=== PATIENT | female | born 1995 | race Caucasian/White ===

== ENCOUNTER 2020-01-29 13:39 | Emergency (ER) | payer OTHER, SELFPAY ==
--- NOTE | 2020-01-29 13:49 | ED.FEMALEGU ---
HPI - Female Genitourinary General Chief complaint: Urogenital-Female Stated complaint: Urogenital-female Time Seen by Provider: 01/29/20 13:49 Source: patient and RN notes reviewed History of Present Illness HPI Narrative: Patient is a 24-year-old female who presents the urgent care with complaints of suprapubic pressure/pains, decreased urinary output and slight low back pain. Patient states that she does have a frequency, urgency and dysuria as well. Patient reports of nausea but denies of any vomiting. Denies of any known fever. Denies of any history of urinary tract infections. Patient states that she did have a recent short. And did have a miscarriage in October as well. Patient continues to have unprotected sex. No other acute complaints. No acute distress noted. Patient read the plan of care. Related Data Allergies Allergy/AdvReac Type Severity Reaction Status Date / Time Penicillins Allergy Intermediate Unknown Verified 01/29/20 13:50 latex Allergy Mild Swelling Verified 01/29/20 13:50 amoxicillin Allergy Unknown Unknown Verified 01/29/20 13:50 Review of Systems Review of Systems: Narrative: CONSTITUTIONAL: Denies fever, chills, or sweats. EYES: Denies visual changes, redness, or discharge. ENT: Denies rhinorrhea, congestion, sore throat, or otalgia. CARDIOVASCULAR: Denies chest pain, palpitations, or edema. RESPIRATORY: Denies cough or dyspnea. GASTROINTESTINAL: Reports of intermittent nausea without vomiting or diarrhea GENITOURINARY: Reports of dysuria, urgency, frequency, suprapubic pressure SKIN: Denies rash or itching. MUSCULOSKELETAL: Reports of low back pain NEUROLOGIC: Denies headache, numbness, or weakness. All other systems reviewed are negative, except as documented in HPI. PMFSH Comments At the time of my signature, I reviewed and agree with the nursing past medical, surgical, social, and family history. There is no relevant family history pertinent to the patient complaint. Exam Narrative: Exam Narrative: GENERAL: This is a well-nourished, well-developed patient, in no apparent distress. HEAD: normocephalic, atraumatic. EYES: PERRL. Sclera clear/white. Vision is grossly intact. EARS: External ears normal NOSE: External nose normal with no obvious nasal discharge, nares without redness, no rhinorrhea. THROAT: Mucous membranes moist NECK: Neck supple GASTROINTESTINAL: Abdomen soft, mild suprapubic tenderness, nondistended. SKIN: warm, intact with no suspicious lesions or rash, good texture and turgor. NEURO: awake, alert, and oriented to person, place and time. There were no obvious focal neurologic abnormalities. EXTREMITIES: No clubbing, cyanosis, or edema. BACK: Negative bilateral CVA tenderness Course Vital Signs Vital signs: Vital Signs Temperature 98.3 F 01/29/20 13:50 Pulse Rate 63 01/29/20 13:50 Respiratory Rate 20 01/29/20 13:50 Blood Pressure 138/71 01/29/20 13:50 Pulse Oximetry 100 01/29/20 13:50 Temperature 98.3 F 01/29/20 13:50 Pulse Rate 63 01/29/20 13:50 Respiratory Rate 20 01/29/20 13:50 Blood Pressure 138/71 01/29/20 13:50 Pulse Oximetry 100 01/29/20 13:50 Reviewed MDM - Female Genitourinary MDM Narrative Medical decision making narrative: Reviewed lab results with the patient. She is aware that urine analysis may be indicative of a urinary tract infection. Considering your symptoms and low bacteria noted in the urine?will start you on antibiotic regimen. Make sure to eat and drink with the antibiotics and finish the medication unless otherwise directed not to. Advised the patient to follow-up on her culture results within 72 hours considering we do not call for negatives. If the culture result is positive and the antibiotic you were prescribed does not treat effectively, you will be called with the change of medication direction. In the meantime increase water intake and avoid sugary and caffeinated drinks. If you experience any increase
[2020-01-29 13:50] VITALS: BP 138/71; PULSE 63; RESP 20; TEMP 36.8; O2SAT 100
== END 2020-01-29 14:20 | disposition home or self-care (01) ==
PROVIDERS: Emergency Provider Nurse Practitioner Family
DX: N39.0 Urinary tract infection, site not specified (principal); J45.909 Unspecified asthma, uncomplicated
CPT/HCPCS: 81003; 87086; 87088; 99213; G0463

== ENCOUNTER 2020-10-03 13:06 | Emergency (ER) | payer OTHER, SELFPAY ==
[2020-10-03 13:17] VITALS: BP 155/66; PULSE 68; RESP 19; TEMP 37; O2SAT 100
--- NOTE | 2020-10-03 13:38 | ED.GENADULT ---
HPI - General Adult General Chief complaint: Upper Respiratory Infection Stated complaint: ear pain and runny nose Time Seen by Provider: 10/03/20 13:38 Source: patient and RN notes reviewed Mode of arrival: ambulatory Limitations: no limitations History of Present Illness HPI narrative: 24-year-old female presents with complains of left otalgia, sneezing, and nasal congestion for the past 2 days. Ruthie reports increasing symptoms with rhinorrhea. NyQuil cold and flu with some relief. Denies cough and chest congestion. Rhinorrhea and nasal congestion. Denies sore throat. No high fevers, drooling, neck or throat swelling. No chest pain, wheezing, or shortness of breath. No exacerbation factors. Denies nausea, vomiting, and abdominal pain. Tolerating liquids well. LMP 10/01/2020. Remains active. The patient reports she have not been diagnosed with COVID-19. The patient reports she is not waiting for the results of a COVID-19 lab test. The patient reports she do not have chills, weakness, or fatigue. The patient reports she do not have any loss of taste or smell, and diarrhea. Denies recent traveling. Denies concerns for COVID-19 or exposures been home with limited outdoor exposure except for essential household needs, work, and return home. At this time, patient is not suspected of having COVID-19. Some parts of this dictation were generated by voice recognition software and may contain typographical and/or grammatical inaccuracies. Related Data Allergies Allergy/AdvReac Type Severity Reaction Status Date / Time Penicillins Allergy Intermediate Unknown Verified 10/03/20 13:09 latex Allergy Mild Swelling Verified 10/03/20 13:09 amoxicillin Allergy Unknown Unknown Verified 10/03/20 13:09 Review of Systems Review of Systems: Narrative: CONSTITUTIONAL: Denies fever, chills, sweats. EYES: Denies visual changes, redness, discharge. ENT: Denies sneezing, rhinorrhea, congestion, LT otalgia. Denies sore throat. CARDIOVASCULAR: Denies chest pain, palpitations, edema. RESPIRATORY: Denies dyspnea, wheezing, cough. GASTROINTESTINAL: Denies abdominal pain, nausea, vomiting, diarrhea. SKIN: Denies rash or itching. MUSCULOSKELETAL: Denies acute back pain, joint pain, or myalgia. NEUROLOGIC: Denies numbness or focal weakness. PSYCHIATRIC: Denies anxiety or depression. All systems reviewed & are unremarkable except as noted in HPI and below. [facility] Past Medical History Medical History (Updated 10/03/20 @ 14:27 by AGUS Malik) Asthma Ear infection Surgical History Surgical History (Updated 10/03/20 @ 14:27 by AGUS Malik) No significant past surgical history Family History Family History (Updated 10/03/20 @ 14:28 by AGUS Malik) Father Asthma Mother Asthma Diabetes mellitus Fibromyalgia Social History Social History (Updated 10/03/20 @ 14:29 by AGUS Malik) Smoking status: Former smoker Tobacco type: cigarettes Second hand tobacco smoke exposure: No Smoking end date: 09/17/19 Alcohol intake: current Substance use: never Living arrangements: with family Occupation/Education: occupation Gender identity (if verbalized by the patient): Female Sexual Orientation (if Verbalized by the Patient): Straight or Heterosexual Comments At time of signature, agree with nurse past medical, surgical, social, and family history. There is relevant patient's history pertinent to the presenting complaint, no relevant family history pertinent to the presenting complaint. Exam Narrative: Exam Narrative: GENERAL: This is a well-nourished, well-developed patient, in no apparent distress. Talks in full sentences and ambulates with steady gait without dyspnea. HEAD: Normocephalic, atraumatic. EYES: PERRL. Sclera clear/white. Vision is grossly intact. EARS: TMs normal without perforation. Hearing grossly intact. EARS: External ears normal, auditory canals c
[2020-10-03 14:16] VITALS: BP 132/80
[2020-10-04 19:04] LABS: SARS-CoV-2 RNA PCR Negative
== END 2020-10-03 14:16 | disposition home or self-care (01) ==
PROVIDERS: Emergency Provider Nurse Practitioner Family
DX: B34.9 Viral infection, unspecified (principal); H92.02 Otalgia, left ear; Z20.822 Contact with and (suspected) exposure to COVID-19; J45.909 Unspecified asthma, uncomplicated; Z87.891 Personal history of nicotine dependence
CPT/HCPCS: 99213; C9803; G0463; U0003; U0005

== ENCOUNTER 2021-01-18 14:37 | Emergency (ER) | payer OTHER, SELFPAY ==
[2021-01-18 14:46] VITALS: BP 157/67; PULSE 100; RESP 20; TEMP 37.2; O2SAT 100
[2021-01-18 14:58] VITALS: BP 157/67; PULSE 100; RESP 20; TEMP 37.2; O2SAT 100
--- NOTE | 2021-01-18 15:07 | ED.EAR ---
HPI - Ear Problem General Chief complaint: Ear Stated complaint: Possible asthma and Ear pain Time Seen by Provider: 01/18/21 15:07 Source: patient, RN notes reviewed and old records reviewed Mode of arrival: ambulatory Limitations: no limitations History of Present Illness HPI Narrative: 25-year-old female who presents to [facility] with a 2-day history of ear pain with sinus congestion. Patient reports no known fevers, cough, sore throat, no difficulty with breathing.Patient has history of asthma but denies any problems with her asthma lately, has not had to use her inhaler for quite awhile. Patient states that she takes daily Claritin. MD Complaint: ear pain Location: left ear Related Data Allergies Allergy/AdvReac Type Severity Reaction Status Date / Time Penicillins Allergy Intermediate Rash Verified 01/18/21 14:57 latex Allergy Mild Swelling Verified 01/18/21 14:57 amoxicillin Allergy Unknown Rash Verified 01/18/21 14:57 Review of Systems Review of Systems: CONSTITUTIONAL: Denies fever, chills, or sweats. EYES: Denies visual changes, redness, or discharge. ENT: Positive rhinorrhea,no congestion, no sore throat, left otalgia. CARDIOVASCULAR: Denies chest pain, palpitations, or edema. RESPIRATORY: Denies cough or dyspnea. GASTROINTESTINAL: Denies abdominal pain, nausea, vomiting, or diarrhea. GENITOURINARY: Denies dysuria or hematuria. SKIN: Denies rash or itching. MUSCULOSKELETAL: Denies back pain, joint pain, or myalgia. NEUROLOGIC: Denies headache, numbness, or weakness. PSYCHIATRIC: Positive for history of anxiety or depression. All systems reviewed & are unremarkable except as noted in HPI and below [facility] Past Medical History Medical History (Updated 01/18/21 @ 15:50 by Quynh Magaña NP) Asthma Bipolar 1 disorder Ear infection Surgical History Surgical History (Updated 10/03/20 @ 14:27 by AGUS Malik) No significant past surgical history Family History Family History (Updated 01/18/21 @ 15:51 by Quynh Magaña NP) Father Asthma Heart disease Mother Asthma Diabetes mellitus Fibromyalgia Hypertension Grandparent Heart disease Pancreatic cancer Social History Social History (Updated 10/03/20 @ 14:29 by AGUS Malik) Smoking status: Former smoker Tobacco type: cigarettes Second hand tobacco smoke exposure: No Smoking end date: 09/17/19 Alcohol intake: current Substance use: never Gender identity (if verbalized by the patient): Female Exam Narrative: GENERAL: Well-appearing, well-nourished, and in no acute distress. HEAD: Normocephalic, atraumatic. EYES: PERRLA and EOMI. ENT: Nares light red with clear rhinorrhea no epistaxis. Mucous membranes moist.TM normal to the right ear with good light reflex, Left TM red with bulging membrane noted, no drainage, throat red with no lesions or exudates, no tonsil swelling noted or redness, post nasal drainage noted. NECK: Supple. no lymphadenopathy CHEST: Clear to auscultation. No respiratory distress. SAO2 100% on room air. HEART: Regular rate and rhythm. No murmur heard. Normal peripheral pulses. ABDOMEN: Soft, nontender, nondistended, normal active bowel sounds. EXTREMITIES: Normal range of motion. No edema. SKIN: Warm, dry, no rash. NEURO: No focal deficits. Alert and oriented x3. Course Vital Signs Vital signs: Vital Signs Temperature 37.2 C 01/18/21 14:46 Pulse Rate 100 01/18/21 14:46 Respiratory Rate 20 01/18/21 14:46 Blood Pressure 157/67 H 01/18/21 14:46 Pulse Oximetry 100 01/18/21 14:46 Temperature 37.2 C 01/18/21 14:58 Pulse Rate 100 01/18/21 14:58 Respiratory Rate 20 01/18/21 14:58 Blood Pressure 157/67 H 01/18/21 14:58 Pulse Oximetry 100 01/18/21 14:58 Medical Decision Making Differential Diagnosis Differential Diagnosis: otitis media, otitis externa, URI, sinusitis, viral syndrome Medical Records Medical records reviewed: Yes I reviewed t
== END 2021-01-18 15:29 | disposition home or self-care (01) ==
PROVIDERS: Emergency Provider Registered Nurse
DX: H65.02 Acute serous otitis media, left ear (principal); Z87.891 Personal history of nicotine dependence; J45.909 Unspecified asthma, uncomplicated
CPT/HCPCS: 99213; G0463

== ENCOUNTER 2021-10-11 10:27 | Emergency (ER) | payer OTHER, SELFPAY ==
--- NOTE | 2021-10-11 10:32 | ED.FEMALEGU ---
HPI - Female Genitourinary General Chief complaint: Urogenital-Female Stated complaint: Poss uti Time Seen by Provider: 10/11/21 10:32 Source: patient and RN notes reviewed History of Present Illness HPI Narrative: Patient is a 25-year-old female who presents the urgent care with complaints of possible UTI. Patient states that 4 days ago she started having urgency, suprapubic pressure and urinary frequency. Patient states that she is 3 days late on her period and did have a positive test at home. Patient denies any fevers, nausea, vomiting. Patient states this is her second and she does have a 5-year-old at home. No other acute complaints. No acute distress noted. Patient aware of the plan of care. Some parts of this dictation were generated by voice recognition software and may contain typographical and/or grammatical inaccuracies. Related Data Allergies Allergy/AdvReac Type Severity Reaction Status Date / Time Penicillins Allergy Intermediate Rash Verified 01/18/21 14:57 latex Allergy Mild Swelling Verified 01/18/21 14:57 amoxicillin Allergy Unknown Rash Verified 01/18/21 14:57 Review of Systems Review of Systems: CONSTITUTIONAL: Denies fever, chills, or sweats. EYES: Denies visual changes, redness, or discharge. ENT: Denies rhinorrhea, congestion, sore throat, or otalgia. CARDIOVASCULAR: Denies chest pain, palpitations, or edema. RESPIRATORY: Denies cough or dyspnea. GASTROINTESTINAL: Denies abdominal pain, nausea, vomiting, or diarrhea. GENITOURINARY: Reports of urinary frequency, urgency and suprapubic pressure SKIN: Denies rash or itching. MUSCULOSKELETAL: Denies back pain, joint pain, or myalgia. NEUROLOGIC: Denies headache, numbness, or weakness. All other systems reviewed are negative, except as documented in HPI. [facility] Past Medical History Medical History (Updated 10/11/21 @ 10:57 by AGUS Gardner) Asthma Bipolar 1 disorder Ear infection Surgical History Surgical History (Updated 10/03/20 @ 14:27 by AGUS Malik) No significant past surgical history Family History Family History (Updated 01/18/21 @ 15:52 by Quynh Magaña NP) Father Asthma Heart disease Mother Asthma Diabetes mellitus Fibromyalgia Hypertension Grandparent Heart disease Pancreatic cancer Social History Social History (Updated 10/03/20 @ 14:29 by AGUS Malik) Smoking status: Former smoker Tobacco type: cigarettes Second hand tobacco smoke exposure: No Smoking end date: 09/17/19 Alcohol intake: current Substance use: never Gender identity (if verbalized by the patient): Female Sexual Orientation (if Verbalized by the Patient): Straight or Heterosexual Comments At the time of my signature, I reviewed and agree with the nursing past medical, surgical, social, and family history. There is no relevant family history pertinent to the patient complaint. Exam Narrative: GENERAL: This is a well-nourished, well-developed patient, in no apparent distress. HEAD: normocephalic, atraumatic. EYES: PERRL. Sclera clear/white. Vision is grossly intact. EARS: External ears normal NOSE: External nose normal with no obvious nasal discharge, nares without redness, no rhinorrhea. THROAT: Mucous membranes moist NECK: Neck supple CARDIOVASCULAR: Regular rate and rhythm without murmurs, gallops, or rubs. RESPIRATORY: Clear to auscultation. Breath sounds equal bilaterally. No wheezes, rales, or rhonchi. GASTROINTESTINAL: Abdomen soft, mild suprapubic tenderness, nondistended. Bowel sounds are active. SKIN: warm, intact with no suspicious lesions or rash, good texture and turgor. NEURO: awake, alert, and oriented to person, place and time. There were no obvious focal neurologic abnormalities. EXTREMITIES: No clubbing, cyanosis, or edema. BACK: Negative bilateral CVA tenderness Course Course Level of Care: Express Care Visit Vital Signs Vital signs: Vital Sig
[2021-10-11 10:37] VITALS: BP 186/59; PULSE 79; RESP 16; TEMP 36.8; O2SAT 100
== END 2021-10-11 11:03 | disposition home or self-care (01) ==
PROVIDERS: Emergency Provider Nurse Practitioner Family
DX: O23.40 Unspecified infection of urinary tract in pregnancy, unspecified trimester (principal); N39.0 Urinary tract infection, site not specified; Z3A.00 Weeks of gestation of pregnancy not specified; Z87.891 Personal history of nicotine dependence; O99.519 Diseases of the respiratory system complicating pregnancy, unspecified trimester; J45.909 Unspecified asthma, uncomplicated
CPT/HCPCS: 81003; 81025; 87086; 99213; G0463

== ENCOUNTER 2022-03-02 16:45 | Emergency (ER) | payer MEDICAID, SELFPAY ==
--- NOTE | 2022-03-02 16:48 | ED.SKABFB ---
HPI - Skin/Abscess/Foreign Bdy General Chief complaint: Wound/Laceration Stated complaint: Fall Injury/Laceration to hand Time Seen by Provider: 03/02/22 16:48 Source: patient and RN notes reviewed History of Present Illness HPI narrative: Patient is a 26-year-old female who presents the urgent care with complaints of a laceration to the right wrist. Patient states that she tripped at home and fell against a glass cabinet, shattering the cabinet. Patient is up-to-date on her tetanus. Patient is applied a bandage and gauze. No other acute complaints or injuries from the fall. No acute distress noted. Patient aware of the plan of care. Some parts of this dictation were generated by voice recognition software and may contain typographical and/or grammatical inaccuracies. Related Data Home Medications Medication Instructions Recorded Confirmed sertraline 50 mg tablet 50 mg PO DAILY 03/02/22 03/02/22 Allergies Allergy/AdvReac Type Severity Reaction Status Date / Time Penicillins Allergy Intermediate Rash Verified 03/02/22 17:05 latex Allergy Mild Swelling Verified 03/02/22 17:05 amoxicillin Allergy Unknown Rash Verified 03/02/22 17:05 Review of Systems Review of Systems: CONSTITUTIONAL: Denies fever, chills, or sweats. EYES: Denies visual changes, redness, or discharge. ENT: Denies rhinorrhea, congestion, sore throat, or otalgia. CARDIOVASCULAR: Denies chest pain, palpitations, or edema. RESPIRATORY: Denies cough or dyspnea. GASTROINTESTINAL: Denies abdominal pain, nausea, vomiting, or diarrhea. GENITOURINARY: Denies dysuria or hematuria. SKIN: Reports of a laceration to the right wrist MUSCULOSKELETAL: Denies back pain, joint pain, or myalgia. NEUROLOGIC: Denies headache, numbness, or weakness. All other systems reviewed are negative, except as documented in HPI. [facility] Past Medical History Medical History (Updated 03/02/22 @ 17:23 by AGUS Gardner) Asthma Bipolar 1 disorder Ear infection Surgical History Surgical History (Updated 10/03/20 @ 14:27 by AGUS Malik) No significant past surgical history Family History Family History (Updated 01/18/21 @ 15:52 by Quynh Magaña NP) Father Asthma Heart disease Mother Asthma Diabetes mellitus Fibromyalgia Hypertension Grandparent Heart disease Pancreatic cancer Social History Social History (Updated 10/03/20 @ 14:29 by AGUS Malik) Smoking status: Former smoker Tobacco type: cigarettes Second hand tobacco smoke exposure: No Smoking end date: 09/17/19 Alcohol intake: current Substance use: never Gender identity (if verbalized by the patient): Female Sexual Orientation (if Verbalized by the Patient): Straight or Heterosexual Comments At the time of my signature, I reviewed and agree with the nursing past medical, surgical, social, and family history. There is no relevant family history pertinent to the patient complaint. Exam Narrative: GENERAL: This is a well-nourished, well-developed patient, in no apparent distress. HEAD: normocephalic, atraumatic. EYES: PERRL. Sclera clear/white. Vision is grossly intact. EARS: External ears normal NOSE: External nose normal with no obvious nasal discharge, nares without redness, no rhinorrhea. THROAT: Mucous membranes moist NECK: Neck supple SKIN: Puncture wound noted to the ulnar aspect of the right wrist. Warm, intact with no suspicious lesions or rash, good texture and turgor. NEURO: awake, alert, and oriented to person, place and time. There were no obvious focal neurologic abnormalities. EXTREMITIES: Positive strong right radial pulse with capillary refill less than 2 seconds. Range of motion of right upper extremity within normal limits Course Course Level of Care: Express Care Visit Vital Signs Vital signs: Vital Signs Temperature 99.0 F 03/02/22 16:56 Pulse Rate 119 H 03/02/22 16:56 Respiratory Rate 20 03/02/22 16:56 Blood
[2022-03-02 16:56] VITALS: BP 132/88; PULSE 119; RESP 20; TEMP 37.2; O2SAT 99
== END 2022-03-02 17:25 | disposition home or self-care (01) ==
PROVIDERS: Emergency Provider Nurse Practitioner Family
DX: S61.511A Laceration without foreign body of right wrist, initial encounter (principal); W18.39XA Other fall on same level, initial encounter; F31.9 Bipolar disorder, unspecified
CPT/HCPCS: 12001; 99212; G0463

== ENCOUNTER 2023-04-12 14:16 | Emergency (ER) | payer OTHER, MEDICAID, SELFPAY ==
[2023-04-12 14:22] VITALS: BP 149/71; PULSE 90; RESP 16; TEMP 36.7
--- NOTE | 2023-04-12 15:08 | ED.URI ---
HPI - URI/Sore Throat General Chief Complaint: Upper Respiratory Infection Stated Complaint: throat / ear Time Seen by Provider: 04/12/23 15:11 Source: patient, RN notes reviewed and old records reviewed Mode of arrival: ambulatory Limitations: no limitations History of Present Illness HPI Narrative: 27-year-old female presents to the [facility] with complaints of ear and throat pain that started yesterday. No treatment prior to arrival. Patient denies fevers, sinus congestion, cough, abdominal pain, chest pain. Onset (ago): day(s) (1) Related Data Allergies Allergy/AdvReac Type Severity Reaction Status Date / Time Penicillins Allergy Intermediate Rash Verified 03/02/22 17:05 latex Allergy Mild Swelling Verified 03/02/22 17:05 amoxicillin Allergy Unknown Rash Verified 03/02/22 17:05 Review of Systems Review of Systems: All systems reviewed & are unremarkable except as noted in HPI and below Constitutional: Constitutional: Reports no additional constitutional complaints Eyes: Eyes: Reports no additional eye complaints ENT: Reports as per HPI Cardiovascular: Cardiovascular: Reports no additional cardiovascular complaints, Denies chest pain and Denies dyspnea Respiratory: Respiratory: Reports no additional respiratory complaints, Denies chest congestion, Denies cough and Denies dyspnea Gastrointestinal: Gastrointestinal: Reports no additional gastrointestinal complaints, Denies abdominal pain, Denies nausea and Denies vomiting Musculoskeletal: Musculoskeletal: Reports no additional musculoskeletal complaints Integumentary/Breasts: Skin/Breast: Reports system reviewed and no additional complaints, except as docu Neurologic: Reports system reviewed and no additional complaints, except as documented Psychiatric: Psychiatric: Reports no additional psychiatric complaints Allergic/Immunologic: Allergic/Immunologic: Reports no additional allergic/immunologic complaints COUNT INCLUDES THE [facility] Past Medical History Medical History Asthma Bipolar 1 disorder Ear infection Surgical History Surgical History No significant past surgical history Family History Family History Father Asthma Heart disease Mother Asthma Diabetes mellitus Fibromyalgia Hypertension Grandparent Heart disease Pancreatic cancer Social History Social History Smoking status: Former smoker Tobacco type: cigarettes Second hand tobacco smoke exposure: No Smoking end date: 09/17/19 Alcohol intake: current Substance use: never Living arrangements: with family Occupation/Education: occupation Gender identity (if verbalized by the patient): Female Sexual Orientation (if Verbalized by the Patient): Straight or Heterosexual Comments At the time of my signature, I reviewed and agree with the nursing past medical, surgical, social, and family history. There is no relevant family history pertinent to the patient complaint. Exam Const: General: cooperative, healthy appearing, comfortable, no acute distress, well developed, alert and well nourished Nutritional Appearance: well nourished Orientation/consciousness: patient oriented x3 Limitations: no limitations HENMT: Head: normal to inspection Ears: hearing grossly normal bilaterally and external ears normal Face/Nose/Sinus: Normal external nose present, Normal nares present, Normal nasal mucous membranes and turbinates present, normal facial exam and face symmetric Face and sinus: normal facial exam and face symmetric Mouth: Yes Normal oral and palatal mucosa present, Yes lip normal and Yes moist mucous membranes Throat: posterior oropharynx normal, uvula midline and abnormal tonsil bilateral erythema, exudates and hypertrophy 3+ Eyes: General: appearance normal, both eyes
== END 2023-04-12 15:33 | disposition home or self-care (01) ==
PROVIDERS: Emergency Provider Nurse Practitioner
DX: J02.0 Streptococcal pharyngitis (principal); Z87.891 Personal history of nicotine dependence; J45.909 Unspecified asthma, uncomplicated
CPT/HCPCS: 87880; 99213; G0463

== ENCOUNTER 2024-01-09 16:49 | Emergency (ER) | payer MEDICAID, SELFPAY ==
[2024-01-09 16:55] VITALS: BP 146/66; PULSE 80; RESP 16; TEMP 36.2; O2SAT 100
--- NOTE | 2024-01-09 17:19 | ED.NAVMDI ---
HPI - Nausea/Vomiting/Diarrhea General Chief complaint: Nausea/Vomiting/Diarrhea Stated complaint: Vomiting Time Seen by Provider: 01/09/24 17:19 Source: patient Mode of arrival: ambulatory Limitations: no limitations History of Present Illness HPI Narrative: 28-year-old female presents with complaint of nausea vomiting, headache since 3:00 a.m. this morning. Has kept down some sips of water. States she has vomited about 9 times. Afebrile. Denies abdominal pain. All systems reviewed and negative except as noted above. Related Data Allergies Allergy/AdvReac Type Severity Reaction Status Date / Time Penicillins Allergy Intermediate Rash Verified 01/09/24 16:53 latex Allergy Mild Swelling Verified 01/09/24 16:53 amoxicillin Allergy Unknown Rash Verified 01/09/24 16:53 Review of Systems Review of Systems: CONSTITUTIONAL: Denies fever, chills, or sweats. EYES: Denies visual changes, redness, or discharge. ENT: Denies rhinorrhea, congestion, sore throat, or otalgia. CARDIOVASCULAR: Denies chest pain, palpitations, or edema. RESPIRATORY: Denies cough or dyspnea. GASTROINTESTINAL: Denies abdominal pain. Reports nausea, vomiting. Denies diarrhea. GENITOURINARY: Denies dysuria or hematuria. SKIN: Denies rash or itching. MUSCULOSKELETAL: Denies back pain, joint pain, or myalgia. NEUROLOGIC: Denies headache, numbness, or weakness. PSYCHIATRIC: Denies anxiety or depression. All other systems reviewed are negative, except as documented in HPI. FORMERLY [facility] Past Medical History Medical History Asthma Bipolar 1 disorder Ear infection Surgical History Surgical History No significant past surgical history Family History Family History Father Asthma Heart disease Mother Asthma Diabetes mellitus Fibromyalgia Hypertension Grandparent Heart disease Pancreatic cancer Social History Social History Smoking status: Former smoker Tobacco type: cigarettes Second hand tobacco smoke exposure: No Smoking end date: 09/17/19 Alcohol intake: current Substance use: never Living arrangements: with family Occupation/Education: occupation Gender identity (if verbalized by the patient): Female Sexual Orientation (if Verbalized by the Patient): Straight or Heterosexual Comments At time of signature, agree with nursing past medical, surgical, social and family history. There is no relevant family history pertinent to the presenting complaint. Exam Narrative: GENERAL: This is a well-nourished, well-developed patient, in no apparent distress. HEAD: normocephalic, atraumatic. EYES: PERRL. Sclera clear/white. Vision is grossly intact. EARS: External ears normal, auditory canals clear and without drainage, TMs normal without perforation. Hearing grossly intact. NOSE: External nose normal with no obvious nasal discharge, nares without redness, no rhinorrhea. THROAT: Mucous membranes moist, posterior pharynx clear. NECK: Neck supple, non-tender without lymphadenopathy, masses or thyromegaly. CARDIOVASCULAR: Regular rate and rhythm without murmurs, gallops, or rubs. RESPIRATORY: Clear to auscultation. Breath sounds equal bilaterally. No wheezes, rales, or rhonchi. GASTROINTESTINAL: Abdomen soft, non-tender, nondistended. Bowel sounds are active. No hepato-splenomegaly, or palpable masses. No guarding. SKIN: warm, Dry, intact with no suspicious lesions or rash, good texture and turgor. NEURO: awake, alert, and oriented to person, place and time. There were no obvious focal neurologic abnormalities. EXTREMITIES: No joint tenderness, effusion, or edema noted. Course Course Level of Care: Express Care Visit Vital Signs Vital signs: Vital Signs Temperature 36.2 C L 01/09/24 16:55 Pulse Rate 80
== END 2024-01-09 17:30 | disposition home or self-care (01) ==
PROVIDERS: Emergency Provider Nurse Practitioner Family
DX: A08.4 Viral intestinal infection, unspecified (principal); Z87.891 Personal history of nicotine dependence; J45.909 Unspecified asthma, uncomplicated
CPT/HCPCS: 99213; G0463